=== PATIENT | female | born 1930 | race Caucasian/White ===

== ENCOUNTER → 2016-05-19 | Outpatient (CLI) | payer MEDICARE, OTHER ==
[~2016-05-19] MED LIST: AFRIN15 M1; ALENDRONATE SOD70 M1 PO; ALLEGRA ALLERG180 MG PO; ALLERGY RELIEF180 MG PO; ALPRAZOLAM0.25 MG PO; ARANESP60 MCG/1 M SUBQ; ASPIRIN EC81 M1 PO; ASPIRIN81 M2 PO; ATORVASTATIN CA10 MG PO; BACITRACIN ZIN120 GM TOP; CALCIUM +D & M1 EACH PO; CALCIUM 500 +1 EAC5 PO; CARAFATE1 GM PO; CLOPIDOGREL BIS75 MG PO; CLOPIDOGREL75 MG PO; COMBIVENT RESPIM4 GM INH; DIABETIC TUSSI PO; FERROUS GLUCON324 M1 PO; FOSAMAX70 MG PO; FUROSEMIDE40 MG PO; IMDUR PO; LASIX20 MG PO; LEVO-T50 MCG PO; LEVOTHYROXINE50 MC1 PO; LISINOPRIL2.5 MG PO; LOPRESSOR PO; METOPROLOL TAR25 MG PO; METOPROLOL TART25 MG PO; MIRTAZAPINE30 M1 PO; MULTI VITAMIN1 EACH PO; MULTI-VITAMIN1 EAC1 PO; MULTIVITAMINS1 EAC3 PO; PANTOPRAZOLE SO40 MG PO; PERCOCET 51 UDTAB 5/ PO; PERCOCET5/325 PO; PROTONIX PO; REMERON30 MG PO; SENNA8.6 M1 PO; SUCRALFATE1 G/10 ML PO; SYNTHROID PO; ZESTRIL2.5 M1 PO
--- NOTE | ~2016-05-19 | CT57 ---
[facility] A Service of [facility] & [facility] RADIOLOGY TEXT RESULTS PATIENT: CLAIRE LUCERO LOCATION: CCAT : 32 UNIT #: [id number] AGE: [address]: Carmen Marcial MD SEX: F ORDER DR: [id number] [facility] [address] [place], [place] [address] [id number] MR#: [id number] [facility] #: [id number] NAME: CLAIRE LUCERO : 1930 SEX: F STUDY DATE/TIME: 05/19/2016 9:48 UNIT: CCAT ROOM: STUDY DESCRIPTION: CT Chest Wo Cont Attending Physician: Carmen Marcial M.D. Referring Physician: Carmen Marcial M.D. Ordering Physician: Carmen Marcial M.D. Primary Care Physician: Carmen Marcial M.D. MEDICAL IMAGING REPORT This report is preliminary unless electronic signature is present EXAM CT chest without contrast DATE OF EXAMINATION 05/19/2016 at 09:48 HISTORY 86-year-old female, shortness of breath for 1 month. Abnormal chest x-ray. History of pneumonia and asthma. Previous history of stroke. Renal failure. COMPARISON PA and lateral chest radiograph 04/19/2016. No prior CT chest for comparison at this institution. PROCEDURE 5 mm noncontrast axial images through the chest. Sagittal and coronal reformatted images were obtained. This CT exam was performed with one or more of the following radiation dose reduction techniques: automatic exposure control, adjustment of mA and/or kV according to patient size, and iterative reconstruction. FINDINGS Linear band-like opacities are present within the left upper lobe, particularly in its lingular segment, as well as within the right middle lobe, favored to represent atelectasis. No dense or well-defined lung consolidations are seen. Minimal dependent atelectasis posteriorly in the lung bases. No definite pericardial effusion or pleural effusion. Mild cardiomegaly. CABG changes. No pathologic adenopathy. No pneumothorax. Right arm approach PICC extends to the cavoatrial junction. Benign calcified granulomatous changes in the mediastinum. Moderate calcific atherosclerosis in the thoracic aorta, greatest in its distal descending STS. [facility] A Service of [facility] & [facility] RADIOLOGY TEXT RESULTS PATIENT: CLAIRE LUCERO LOCATION: [facility] : 32 UNIT #: [id number] AGE: [address]: Carmen Marcial MD SEX: F ORDER DR: segment. Dense calcification in the upper abdominal aorta. Coarse calcification within the right adrenal gland, nonspecific may represent sequelae of previous infection, granulomas disease, or old ischemic insult. Left kidney appears mildly atrophic. Chronic-appearing compression deformities at T5, T7, T8, T11 and L1. No acute osseous abnormalities are identified. IMPRESSION 1. Band-like subsegmental atelectasis within the perihilar bilateral upper lobes, greatest in the lingular segment of left upper lobe, without dense consolidative change. 2. Mild cardiomegaly with CABG. 3. Chronic appearing thoracolumbar compression deformities. 4. Mild cardiomegaly. Dictated by... Pamella Jamison M.D. THIS IS AN ELECTRONICALLY VERIFIED REPORT Pamella Jamison M.D. at 05/21/2016 7:02 PM Rafaela TD: 05/19/2016 17:23 JOB #: [id number] MEDICAL IMAGING REPORT COPY
== END | disposition home or self-care (01) ==
LOC: CCAT 09:19
DX: J96.00 Acute respiratory failure, unspecified whether with hypoxia or hypercapnia (principal); J98.11 Atelectasis; I51.7 Cardiomegaly; G95.20 Unspecified cord compression; Z95.1 Presence of aortocoronary bypass graft
CPT/HCPCS: 71250

== ENCOUNTER 2016-09-05 14:53 | Inpatient (IN) | payer MEDICARE, OTHER ==
--- NOTE | ~2016-09-05 | CO ---
Unit #: [id number] #: [id number] Patient: KATHERIN LUCERO [id number] [address] [place], [place] [address] [id number] I MR#: [id number] NAME: KATHERIN LUCERO ROOM: 341 Age: 86 Sex: F Admission Date: 09/05/2016 : 1930 Attending Physician: Carmen Marcial M.D. Primary Care Physician: Carmen Marcial M.D. Consultation Date: 09/06/2016 CONSULTATION REPORT REASON FOR CONSULTATION Renal insufficiency and hyperkalemia. Thank you very much for asking me to see this patient in consultation. HISTORY OF PRESENT ILLNESS Ms. Katherin Lucero is an 86-year-old female with history of chronic kidney disease, stage 4, who has been followed in our office in the past as well as seen here in the hospital with baseline creatinine around 2+/-, who was here in the hospital in April after she had a fractured hip and surgery at [place] and then she presented here and felt to have volume overloaded, although she did have an EF at 60%. At that time, she was discharged to rehab where apparently she was there and developed some chest discomfort, ache, and soreness in nature. Apparently, she was treated with aspirin and nitroglycerin. Either prior to arrival or upon arrival, she states she has had no chest pain. Since then, she does have a history of some underlying dementia, although she is alert and oriented to me today here. She denies any nausea, vomiting, or diarrhea. Although on exam, she, by prior doctors before me in the last 24 hours, was noted to have abdominal discomfort. She did undergo a CT scan that showed diverticulosis, but no diverticulitis and really no acute pathology. She was admitted and started on some normal saline. I was asked to see the patient again due to increased BUN and creatinine of 73 and 2.7 with a potassium of 5.4 upon admission last night. PAST MEDICAL HISTORY Again she has a history of chronic kidney disease, stage 4. She has a history of atherosclerotic coronary artery disease, history of valvular heart disease with a FARAZ with an EF of 60%. She is status post coronary artery bypass graft. She has a history of a porcine aortic valve replacement. She has history of hypertension; history of TIA in the past; history of peripheral vascular disease, status post carotid endarterectomy; history of underlying dementia; history of osteoarthritis; history of chronic anemia. She is on outpatient Aranesp shots according to the list from the detention. History of hypothyroidism. She is also status post left hip surgery, status post appendectomy, status post carotid endarterectomy. ALLERGIES Include sulfa drugs and Singulair. MEDICATIONS Her medicines at the rehab/detention include Percocet. She is on alendronate 70 mg weekly; pantoprazole 40 mg a day; levothyroxine 50 mcg a Unit #: [id number] #: [id number] Patient: KATHERIN LUCERO ; alprazolam 0.25 mg b.i.d.; multivitamin a day; aspirin 81 mg a day; Plavix 75 mg a day; calcium with vitamin D daily; atorvastatin 10 mg a day; Aranesp, actually it is every other week and they reported every other day; Combivent t.i.d.; metoprolol 12.5 mg b.i.d.; Lasix 40 mg in the morning and 20 mg at noon; mirtazapine 30 mg at night. SOCIAL HISTORY Again, she lives in a detention. Previous smoker, none now. FAMILY HISTORY Noncontributory. REVIEW OF SYSTEMS As mentioned in the HPI. She denies any fevers, chills, visual problems, sinus problems, cough, hemoptysis, sore throat, difficulty swallowing. No neck pain or neck stiffness. She denies any shortness of breath. She denies any urinary symptoms starting, stopping, or burning. She denies any lower extremity swelling. No recent seizures, strokes, or skin rashes. PHYSICAL EXAMINATION GENERAL: She actually is again alert and oriented to person, place, and time. VITAL SIGNS: Her T-max is 98.9, her pulse 59 to 88, her blood pressure is 112 to 165 over 50 to 109. HEENT: She is normocephalic and atraumatic. Pupils are equal, round, and reactive to light. Extraocular muscles are intact. Hearing appears to be fairly normal. Mouth is clear. No erythema. No exudate. Pharynx appears a little dry. NECK: Supple. No adenopathy. CARDIAC: She appears to have a regular rhythm without a rub. No S3 or S4. LUNGS: Sound clear bilaterally. No wheezes, rhonchi, or rales. ABDOMEN: She has some mild diffuse tenderness. No rebound or guarding. Bowel sounds are positive. No organomegaly noted. Some mild distention. EXTREMITIES: She has no lower extremity swelling. Her pulses are intact in lower extremities. JOINTS: No joint pain or joint swelling. SKIN: No rashes. NEUROLOGIC: Actually, again she is alert and oriented. Able to move all extremities. Motor and sensory appear to be intact grossly. : Deferred. DIAGNOSTIC STUDIES LABORATORY RESULTS: Upon admission; she had a BUN of 73, creatinine 2.7, potassium 5.4, bicarb is 27, calcium is 9.2, albumin is 4.3. Her alk phos was 111, lipase was 21, total CPK was 85. Troponin less than 0.03. Cholesterol 161, TSH 2.47. Her labs this morning after holding her diuretics and a little fluid shows a BUN of 71, creatinine of 2.4, potassium of 4.2, bicarb is 31, calcium is 9.2. INR is 1. Urine sodium is 105. Hemoglobin is 12.0 with a white count of 5500, and platelets 138,000. Urinalysis shows specific gravity of 1.009, no protein, 1+ blood, although 0 to 2 rbc's. She did have 50 to 100 wbc's and 2+ bacteria with gram negatives already growing out of her urine culture. Her blood cultures are pending. ASSESSMENT AND PLAN 1. Acute on chronic kidney disease, stage 4. Certainly, her renal function was worse from her baseline and still elevated, but improving. Unit #: [id number] #: [id number] Patient: KATHERIN LUCERO She does appear to be a little volume depleted on exam and agree with holding her diuretics and mild hydration, although certainly got to be careful not to overload. We will continue her normal saline for now, probably discontinue it tomorrow if everything is back to baseline and we will follow closely. She is on Protonix and has been on that for a while due to recent data suggest that long-term PPIs can also be toxic to the kidney and we would probably like to change it over to Pepcid, but the platelets are starting to go down, so I am going to keep her on her Protonix for now, but once her platelets level also improved and no evidence of any bleeding, then probably would recommend switching her over to Pepcid long-term or H2 rajesh and stop her long-term PPI. She is also on the alendronate and certainly her creatinine clearance is less than 30 mL/minute and probably would recommend not using that long-term due to the potential side effects as well. We will follow. 2. Urinary tract infection with gram-negative rods. She is on Rocephin. Await sensitivities. 3. History of heart disease with chest pain. Cardiology has been consulted. 4. Anemia. Hemoglobin is improved. Certainly, we would hold Aranesp for now and would not restart it until hemoglobin drops below 10 and she can have that restarted at her rehab facility once her hemoglobin does drop below 10, but certainly at her level right now, she is at increased risk for vascular issues with her hemoglobin above 12 on Aranesp. She did have iron deficiency in March and was treated with IV iron. We will probably repeat iron stores while she is here. 5. History of hypertension. 6. History of mild underlying dementia. 7. Abdominal discomfort, unsure of exact etiology. CT is not too impressive. Dictated by... Cody Cardenas M.D. LYSSA/stanislav TD: 09/07/2016 04:12 JOB #: [id number] CONSULTATION REPORT Page 1 of 1 X Marta Cardenas MD X CONSULTATION REPORT
--- NOTE | ~2016-09-05 | HP ---
Unit #: [id number] #: [id number] Patient: CLAIRE LUCERO [id number] [facility]. [place], [place] [address] [id number] MR#: [id number] NAME: CLAIRE LUCERO ROOM: Age: 86 Sex: F Admission Date: 09/05/2016 : 1930 Attending Physician: Reji Cerda D.O. Primary Care Physician: Carmen Marcial M.D. HISTORY AND PHYSICAL CHIEF COMPLAINT Chest pain. HISTORY OF PRESENT ILLNESS The patient is an 86-year-old female with past medical history of coronary artery disease, valvular heart disease, hypertension, chronic kidney disease, TIA, cerebrovascular accident, who presented to the emergency department for evaluation of the above. The patient states that she was in her usual state of health until the day of admission when she developed chest pain. She states that she was trying to take a nap. She developed pain in the mid chest that she describes as "achy," it did not radiate. She denies any associated shortness of breath, diaphoresis or nausea. She states that it lasted a few minutes and resolved spontaneously. She was given sublingual nitroglycerin as well as aspirin prior to arrival. She states that her chest is currently "sore" but the severe pain has resolved. She denies any fever, no cough or cold symptoms. In the emergency department, initial pulse and blood pressure were 69 and 150/109 respectively. EKG showed normal sinus rhythm with a rate of 62 beats per minute. Initial cardiac enzymes are negative. Laboratory notable for BUN 73, creatinine 2.7, potassium 5.4. Urinalysis shows findings concerning for a urinary tract infection. She is being admitted to [facility] for evaluation and further treatment. PAST MEDICAL HISTORY 1. Admission to [facility] 04/17/2016 for ocmkh-wy-[id number] respiratory failure, likely due to CHF exacerbation. 2. CHF. Per the discharge summary from 04/20/2016, the patient had a FARAZ with an ejection fraction of 60%. 3. Coronary artery disease, status post coronary artery bypass grafting. 4. Valvular heart disease, status post porcine aortic valve replacement. 5. Hypertension. 6. History of TIA/CVA. 7. Peripheral arterial disease, status post carotid endarterectomy. 8. Dementia. 9. Chronic kidney disease, stage 4 with a baseline creatinine of 2 to 2.2. She was previously followed by Dr. Jerry Cardenas. 10. Osteoarthritis. 11. Chronic anemia. 12. Hypothyroidism. Unit #: [id number] #: [id number] Patient: CLAIRE LUCERO PAST SURGICAL HISTORY 1. Coronary artery bypass grafting. 2. Aortic valve replacement with porcine valve. 3. Surgery for left hip fracture. 4. Appendectomy. 5. Carotid endarterectomy. ALLERGIES 1. Sulfa. 2. Singulair. HOME MEDICATIONS 1. Percocet 5/325 q.i.d. 2. Alendronate 70 mg weekly. 3. Pantoprazole 40 mg daily. 4. Levothyroxine 50 mcg daily. 5. Alprazolam 0.25 mg b.i.d. 6. Multivitamin daily. 7. Aspirin 81 mg daily. 8. Plavix 75 mg daily. 9. Brandy daily. 10. Calcium plus D daily. 11. Atorvastatin 10 mg daily. 12. Aranesp 60 mcg subcu every other day. 13. Combivent t.i.d. 14. Senna b.i.d. 15. Metoprolol 12.5 mg b.i.d. 16. Lasix 40 mg daily. 17. Afrin nasal spray b.i.d. 18. Lasix 20 mg daily. 19. Mirtazapine 30 mg h.s. 20. Diabetic tussin. SOCIAL HISTORY The patient is at a care home. She is a former smoker. Her code status is a FULL CODE. FAMILY HISTORY Notable for diabetes and heart disease. REVIEW OF SYSTEMS A complete review of systems is negative except as indicated in the HPI. PHYSICAL EXAMINATION VITAL SIGNS: Temperature 98.9, pulse 69, respirations 14, blood pressure 150/109, most recently 165/59, oxygen saturation 98% on room air. GENERAL: The patient is a female who is awake and alert in no acute distress. HEENT: Head is atraumatic. Mucous membranes are moist. NECK: Supple. Trachea is midline. LUNGS: Clear to auscultation bilaterally with no increased work of breathing. HEART: Regular rate and rhythm. ABDOMEN: Soft, nontender. Bowel sounds present in all four quadrants. EXTREMITIES: Nontender with no pedal edema. NEUROLOGIC: Patient is awake and alert. She follows commands. PSYCHIATRIC: Mood and affect are normal. Patient is cooperative. SKIN OF EXAMINED AREAS: Warm and dry. Unit #: [id number] #: [id number] Patient: CLAIRE LUCERO DIAGNOSTIC STUDIES LABORATORY: Complete blood count is essentially normal. Troponin is less than 0.05. INR is 1. Comprehensive metabolic panel is notable for potassium 5.4, BUN 73, creatinine 2.7, alkaline phosphatase 111. Lipase 21. Urinalysis notable for 3+ leukocyte esterase, 1+ blood, 50-100 wbc's, 2+ bacteria. IMAGING: Chest x-ray shows no acute abnormality. CARDIOVASCULAR: EKG shows normal sinus rhythm with a rate of 62 beats per minute. ASSESSMENT The patient is an 86-year-old female with: 1. Chest pain. The patient states that chest is currently "sore." 2. History of coronary artery disease, status post coronary artery bypass grafting. 3. Dyrqm-dq-gymriou kidney disease. The patient has stage 4 chronic kidney disease with a baseline creatinine between 2 and 2.2. Today her creatinine is 2.7. She is on furosemide which may be contributing. 4. Urinary tract infection. 5. Hyperkalemia. 6. Valvular heart disease, status post aortic valve replacement with porcine valve. 7. Hypertension. 8. Hyperlipidemia. 9. History of transient ischemic attack/cerebrovascular accident. 10. Former smoker. 11. Congestive heart failure with ejection fraction as noted above. 12. Hypothyroidism. PLAN 1. Admit for observation to intermediate level. 2. N.p.o. except medications until results of CT abdomen and pelvis. 3. Follow up results of CT abdomen and pelvis previously ordered by emergency room physician. 4. Serial cardiac enzymes. 5. Fasting lipid panel. 6. Consult Dr. Friedman regarding chest pain. 7. Normal saline at 75 mL per hour. 8. Strict I's and O's. 9. Check CPK. 10. Consult Dr. Cardenas regarding invnu-mt-kvhtesr kidney disease. 11. Hold Lasix. 12. Check urine culture and sensitivity on urine in the lab. 13. Blood cultures x2. 14. Rocephin 1 gram IV daily pending results of urine culture. 15. Repeat BMP later this evening to follow up hyperkalemia. 16. Check TSH. 17. Repeat labs in the morning. 18. SCDs for DVT prophylaxis. 19. Regarding code status, the patient is a FULL CODE. Unit #: [id number] #: [id number] Patient: CLAIRE LUCERO Dictated by Danae Feliciano/james TD: 09/05/2016 20:17 JOB #: [id number] HISTORY AND PHYSICAL Page 1 of 1 X Heydi Mejia MD X HISTORY AND PHYSICAL
--- NOTE | ~2016-09-05 | EKG ---
PATIENT: CLAIRE LUCERO UNIT #: [id number] Ventricular Rate: 59 BPM Atrial Rate: 59 BPM P-R Interval: 156 ms QRS Duration: 82 ms Q-T Interval: 482 ms QTC Calculation(Bezet): 477 ms P [place]: 12 degrees Calculated R [place]: -6 degrees Calculated T [place]: 84 degrees Diagnosis Line: Sinus bradycardia with sinus arrhythmia Diagnosis Line: Consider prior inferior infarct by series Diagnosis Line: Borderline ECG Diagnosis Line: When compared with ECG of 05-SEP-2016 14:54, Diagnosis Line: No significant change was found Diagnosis Line: Confirmed by SHANNA QUINN MD ([id number]) on Diagnosis Line: 09/08/2016 6:41:17 AM INTERPRETING VAISHNAVI PENA
--- NOTE | ~2016-09-05 | CO ---
Unit #: [id number] #: [id number] Patient: CLAIRE LUCERO [id number] [facility] [address] [facility]. [place], [place] [address] [id number] I MR#: [id number] NAME: CLAIRE LUCERO ROOM: 341 Age: 86 Sex: F Admission Date: 09/05/2016 : 1930 Attending Physician: Carmen Marcial M.D. Primary Care Physician: Carmen Marcial M.D. Consultation Date: 09/06/2016 CONSULTATION REPORT REASON FOR CONSULTATION Chest pain. HISTORY OF PRESENT ILLNESS This is an 86-year-old white female, previously known to Dr. Friedman, with a past medical history of coronary artery disease, status post coronary artery bypass grafting and porcine aortic valve replacement in 2006 after myocardial infarction. The patient also has a history of PCI and stents with unknown details. She is known to have hypertension, dementia, peripheral artery disease, and history of TIA versus CVA. 2D echocardiogram was completed on 04/19/2016 which revealed an ejection fraction of 60%. She had mild mitral and tricuspid regurgitation as well as moderate pulmonic regurgitation. She was admitted to [facility] on 04/17/2016 for respiratory failure, acute diastolic congestive heart failure, and chronic kidney disease stage 4. She has been a intermediate resident over the past 5 months. She presented to the hospital yesterday with complaints of chest pain. She states that she was sitting up in a chair at the intermediate and she felt pain in the middle of her chest. It was described as an aching pain. There was no radiation. There were no associated symptoms of nausea, vomiting, diaphoresis, or shortness of breath. It lasted for several minutes and then spontaneously resolved. She has had other episodes of chest pain in the past that have been similar. There are no reports of dizziness, palpitations, or syncope. She denies PND, orthopnea, or lower extremity edema. In the emergency department, her temperature was 98.9, pulse 69, respirations 14, blood pressure 150/109, and O2 saturation 98% on 2 L nasal cannula. Initial cardiac enzymes are negative. EKG revealed sinus rhythm with early repolarization, Q waves in inferior leads. Creatinine was elevated 2.4 with a BUN of 71. Urinalysis was positive for leuks, blood, and bacteria. She was admitted for chest pain, acute kidney injury on chronic kidney disease, and probable urinary tract infection. She is currently resting comfortably and denies any symptoms. PAST MEDICAL HISTORY 1. Recent admission to [facility] on 04/17/2016 for respiratory failure, acute diastolic congestive heart failure, chronic kidney disease stage 4, iron-deficiency anemia, and recent femur fracture. Discharged to intermediate. 2. 2D echocardiogram on 04/19/2016 revealed an ejection fraction of 60%. Right ventricle and left atrium mildly dilated. Mild mitral and tricuspid regurgitation. Moderate pulmonic regurgitation. RVSP 31 mmHg. Unit #: [id number] #: [id number] Patient: CLAIRE LUCERO 3. Coronary artery disease, status post coronary artery bypass grafting and porcine aortic valve replacement after myocardial infarction in 2006. 4. Previous PCI and stents with details unavailable. 5. Hypertension. 6. TIA/CVA. 7. Peripheral artery disease with history of carotid endarterectomy. 8. Hypothyroidism. 9. intermediate resident. 10. Dementia. 11. Anxiety. 12. GERD. 13. Osteoarthritis. 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 PAST SURGICAL HISTORY 1. Coronary artery bypass grafting and aortic valve replacement in 2006. 2. Left femur fracture repair. 3. Appendectomy. 4. Carotid endarterectomy. HOME MEDICATIONS Percocet 5/325 mg one tablet p.o. q.i.d.; alendronate sodium 70 mg p.o. once weekly for osteoarthritis, takes on Sunday; pantoprazole 40 mg p.o. daily; levothyroxine 50 mcg p.o. daily; alprazolam 0.25 mg p.o. b.i.d.; multivitamin one tablet p.o. daily; aspirin 81 mg p.o. daily; Plavix 75 mg p.o. daily; Brandy 1 tablet p.o. daily; calcium with vitamin D 1 tablet p.o. daily; atorvastatin 10 mg p.o. daily; Aranesp 60 mcg subcu every other daily; Combivent 1 puff inhalation t.i.d.; senna one tablet p.o. b.i.d.; metoprolol tartrate 12.5 mg p.o. b.i.d.; furosemide 40 mg p.o. daily in the morning; Afrin 1 spray in each nostril b.i.d.; Lasix 20 mg p.o. daily at noon; mirtazapine 30 mg p.o. at bedtime; Diabetic Tussin DM 10 mL p.o. q.4 hours p.r.n. for cough. ALLERGIES Sulfa and Singulair. SOCIAL HISTORY The patient resides in a intermediate. She is a reformed smoker. There are no reports of alcohol or illicit drug use. FAMILY HISTORY Significant for heart disease. Her mother had a myocardial infarction. REVIEW OF SYSTEMS A 10-point review of systems negative except for details noted above in HPI. PHYSICAL EXAMINATION VITAL SIGNS: Temperature 97.9, pulse 58, blood pressure 127/57. CONSTITUTIONAL: This is an 86-year-old white female, in no acute distress. SKIN: Warm and dry. NECK: Supple. No jugular vein distention. No hepatojugular reflux. Normal carotid upstrokes. No carotid bruits auscultated. HEART: S1 and S2. Regular rate and rhythm. No murmurs, rubs, or gallops. LUNGS: Bilateral breath sounds have good air entry throughout all lung matute. Respirations are even and non-labored. No rales, rhonchi, or Unit #: [id number] #: [id number] Patient: CLAIRE LUCERO. ABDOMEN: Soft, nontender, and nondistended. Positive bowel sounds auscultated x4 quadrants . No ascites noted. EXTREMITIES: Bilateral lower extremities have no pretibial pitting edema. DP and PT pulses are 2+. Capillary refill is less than 2 seconds. DIAGNOSTIC STUDIES LABORATORY RESULTS: White blood cell count 5.5, hemoglobin 12, hematocrit 37.2, and platelets 138. Sodium 141, potassium 4.2, chloride 99, CO2 of 31, BUN 71, creatinine 2.4, glucose 99, total protein 6.7, albumin 3.6, AST 20, ALT 13, alkaline phos 98. Lipase 21. Troponin 0.03. INR 1.0. IMAGING STUDIES: Chest x-ray reveals mild interstitial prominence with questionable underlying fibrosis. CT of abdomen and pelvis revealed sigmoid diverticulosis with bandlike scarring in the lung base. Atherosclerosis of the abdominal aorta, but no aneurysm. Left hepatic cyst. Pancreas with mild atrophy. Left kidney with moderate atrophy. CARDIOVASCULAR STUDIES: EKG reveals sinus rhythm with early repolarization. Q waves noted in inferior leads. IMPRESSION 1. Chest pain with questionable anginal equivalent. 2. Coronary artery disease with history of coronary artery bypass grafting and porcine aortic valve replacement in 2006. 3. Left ventricular ejection fraction of 60% on 04/19/2016. 4. Chronic diastolic congestive heart failure compensated. 5. Urinary tract infection. 6. Acute kidney injury on chronic kidney disease, stage 4. 7. Chronic iron-deficiency anemia. 8. Previous left femur fracture. 9. Dementia. 10. Peripheral arterial disease with history of carotid endarterectomy. 11. Transient ischemic attack/cerebrovascular accident. 12. intermediate resident. PLAN 1. The patient presented to the hospital with complaints of chest pain. She was admitted for further observation. Cardiology was consulted. 2. Initial cardiac enzymes are negative and EKG is nonacute. 3. Ischemic testing versus medical management was discussed with the patient and she has opted for medical management. 4. She will be started on a long-acting nitrate in addition to dual antiplatelet therapy, beta rajesh, and statin. 5. She is on antibiotics and gentle IV fluids for urinary tract infection. 6. We will need to watch volume status closely due to history of congestive heart failure. Dictated by... YANI Madrigal/stanislav TD: 09/08/2016 03:53 JOB #: [id number] Unit #: [id number] #: [id number] Patient: NICCLAIRE CONSULTATION REPORT Page 1 of 1 X X CONSULTATION REPORT
--- NOTE | ~2016-09-05 | CT4 ---
[facility] A Service of [facility] RADIOLOGY TEXT RESULTS PATIENT: CLAIRE LUCERO LOCATION: A 341-01 : 32 UNIT #: [id number] AGE: [address]: Carmen Marcial MD SEX: F ORDER DR: [id number] [facility] [address] [facility]. [place], [place] [address] [id number] I MR#: [id number] Acc #: [id number] NAME: CLAIRE LUCERO : 1930 SEX: F STUDY DATE/TIME: 09/05/2016 18:38 UNIT: C3A PCU ROOM: [facility] STUDY DESCRIPTION: CT Abd and Pelv Wo Cont Attending Physician: Heydi Mejia M.D. Ordering Physician: Reji Cerda D.O. Primary Care Physician: Carmen Marcial M.D. MEDICAL IMAGING REPORT This report is preliminary unless electronic signature is present EXAMINATION CT abdomen and pelvis without contrast. DATE 09/05/2016 HISTORY 86-year-old female with diffuse abdominal pain today. Previous history of stroke, cardiac disease, hypertension, kidney disease. COMPARISON No prior CT abdomen for comparison at this institution. Correlation is made to CT chest without contrast, 06/15/2016. PROCEDURE 5 mm noncontrast axial images through the abdomen and pelvis. Enteric contrast was not administered. Sagittal and coronal reformatted images were obtained. This CT exam was performed with one or more of the following radiation dose reduction techniques: automatic exposure control, adjustment of mA and/or kV according to patient size, and iterative reconstruction. FINDINGS There is band-like scarring in the lung bases. Median sternotomy changes are noted. There is dense calcific atherosclerosis of the abdominal aorta, without aneurysm. A cyst is seen within the lateral left hepatic segment, unchanged from previous chest CT. The spleen, gallbladder, adrenals are normal. The pancreas is moderately atrophic. The left kidney is moderately atrophic. Right kidney within normal limits. No urinary tract stone or hydronephrosis is seen. The appendix is not visualized but no pericecal inflammation is evident. Advanced diverticular changes are present within the sigmoid colon without STS. [facility] A Service of [facility] RADIOLOGY TEXT RESULTS PATIENT: CLAIRE LUCERO LOCATION: C3A 341-01 : 32 UNIT #: [id number] AGE: [address]: Carmen Marcial MD SEX: F ORDER DR: evidence of acute diverticulitis. Unopacified bowel appears grossly nonthickened and noninflamed. PELVIS FINDINGS: Urinary bladder, uterus and rectum appear within normal limits. No pelvic adenopathy or free fluid is identified. Left femur open reduction internal fixation changes are present. Chronic-appearing compression deformities of T11, L1, L3, L4. IMPRESSION 1. No acute findings within the abdomen. 2. Advanced sigmoid diverticulosis without CT evidence of acute diverticulitis. 3. The appendix is not visualized but no pericecal inflammation is seen. 4. Moderate left renal atrophy and pancreatic parenchymal atrophy. 5. Median sternotomy changes. 6. Left hepatic cyst. 7. Left hip ORIF. 8. Chronic-appearing compression deformities of T11, L1, L3 and L4. 9. Not mentioned in the body of the report, there is dense calcification within the right adrenal gland likely representing old infectious or vascular insult, but in keeping with a benign finding. Dictated by... Pamella Jamison M.D. THIS IS AN ELECTRONICALLY VERIFIED REPORT Pamella Jamison M.D. at 09/06/2016 10:40 AM STANLEY/shima TD: 09/06/2016 01:18 JOB #: [id number] MEDICAL IMAGING REPORT Page 1 of 1 COPY
--- NOTE | ~2016-09-05 | CR72 ---
[facility] A Service of [facility] RADIOLOGY TEXT RESULTS PATIENT: CLAIRE LUCERO LOCATION: [facility] : 32 UNIT #: [id number] AGE: [address]: Reji Cerda DO SEX: F ORDER DR: [id number] [facility] [address] [place], [place] [address] [id number] MR#: [id number] Acc #: [id number] NAME: CLAIRE LUCERO : 1930 SEX: F STUDY DATE/TIME: 09/05/2016 15:26 UNIT: [facility] ROOM: STUDY DESCRIPTION: CR Chest Single View Portable Attending Physician: Reji Cerda D.O. Ordering Physician: Reji Cerda D.O. Primary Care Physician: Carmen Marcial M.D. MEDICAL IMAGING REPORT This report is preliminary unless electronic signature is present EXAM Portable chest. HISTORY Midchest pain, onset today. COMPARISON 04/19/16 FINDINGS Portable view of the chest demonstrates mild interstitial prominence suggesting underlying fibrosis. No acute airspace disease or consolidation. Probable small amount of right basilar atelectasis. Interval resolution of small effusions when compared to the April study. Stable cardiomegaly. Patient is post median sternotomy and apparent coronary artery bypass. Diffuse aortic atherosclerotic changes. No sizeable effusion or pneumothorax. Overall no acute findings. Dictated by... Javi Garcia M.D. THIS IS AN ELECTRONICALLY VERIFIED REPORT Javi Garcia M.D. at 09/05/2016 8:29 PM Christa TD: 09/05/2016 20:02 JOB #: [id number] MEDICAL IMAGING REPORT Page 1 of 1 COPY
--- NOTE | ~2016-09-05 | DS ---
Unit #: [id number] #: [id number] Patient: CLAIRE LUCERO [id number] [address] [address] [id number] I MR#: [id number] NAME: CLAIRE LUCERO ROOM: 341 Age: 86 Sex: F Admission Date: 09/05/2016 : 1930 Discharge Date: 09/08/2016 Attending Physician: Carmen Marcial M.D. Primary Care Physician: Carmen Marcial M.D. DISCHARGE SUMMARY DIAGNOSES ON ADMISSION 1. Acute on chronic kidney disease. 2. Chest pain. DIAGNOSES ON DISCHARGE 1. Chest pain, myocardial infarction ruled out. 2. Angina pectoris. 3. Coronary artery disease, status post coronary artery bypass grafting x4 in 2006. 4. Ischemic cardiomyopathy with ejection fraction of 30% in past but most recent echo has ejection fraction of 60%. 5. Chronic diastolic heart failure. 6. Chronic kidney disease stage 3. 7. Hypertension. 8. Dementia. 9. Degenerative joint disease. 10. Chronic anemia. 11. Hypothyroidism. 12. History of transient ischemic attack. 13. Valvular heart disease, status post aortic valve replacement (Porcine). 14. Peripheral arterial disease, status post carotid endarterectomy. 15. Acute Escherichia coli urinary tract infection. CONSULTATIONS 1. Dr. Goode in cardiac consultation. 2. Dr. Cardenas in renal consultation. DIAGNOSTIC STUDIES LABORATORY: Patient's creatinine is 1.8, which is close to his baseline. On admission, it was 2.7. Sodium 142, potassium 4.1. AST and ALT are within normal limits. Total iron was 47, TIBC 263, transferrin saturation was 18, ferritin level was 156. WBC was 6.6, hemoglobin 9.9, platelets 120,000. TSH was 2.47. Patient had a hemoglobin A1c done in March 2016 and it was 5.2. Blood cultures did not reveal any growth so far. Urine culture was positive for E. coli. HOSPITAL COURSE An 86-year-old patient was admitted to [facility] with chest pain. Details are as per admission H and P. Chest pain: Patient's chest pain was atypical. WA was ruled out. Patient was seen by cardiology who recommended medical management. Unit #: [id number] #: [id number] Patient: CLAIRE LUCERO Acute E. coli urinary tract infection: Patient was treated with antibiotics. Acute on chronic kidney disease: Patient was treated with IV fluids and was seen by Dr. Cardenas in consultation. Patient's creatinine is 1.8 today which is close to her baseline. Today patient is comfortable, is not in any acute distress. He is confused to time. PHYSICAL EXAMINATION VITAL SIGNS: Reveal temperature of 98.3, pulse 50 per minute, respiratory rate 18 per minute, blood pressure is 129/51. HEENT: Revealed no conjunctival congestion. Sclerae is nonicteric. NECK: Supple. Trachea is central. RESPIRATORY: Revealed decreased breath sounds bilaterally. There are no wheezes or crackles. HEART: Regular rate and rhythm. S1, S2. ABDOMEN: Soft, tender. Bowel sounds are present in all four quadrants. NEUROLOGIC: Patient is confused to time. He is alert and oriented to place. SKIN: Warm and dry. RECOMMENDATIONS ON DISCHARGE Condition stable. Activity as tolerated. MEDICATIONS 1. Combivent Mini neb treatment b.i.d. scheduled and q.4 hours p.r.n. 2. Remeron 30 mg p.o. nightly. 3. Xanax 0.25 mg p.o. b.i.d. p.r.n. A prescription was written. 4. Lopressor 12.5 mg p.o. b.i.d. 5. Senokot S one tablet p.o. b.i.d. 6. Lipitor 10 mg p.o. nightly. 7. Iron gluconate 325 mg p.o. daily. 8. Alendronate 70 mg once a week. 9. Multivitamin one tablet p.o. daily. 10. Enteric coated aspirin 81 mg p.o. daily. 11. Percocet 5 mg one p.o. q.6 hours p.r.n. for pain. A prescription was written. 12. Plavix 75 mg p.o. daily. 13. Protonix 40 mg p.o. daily. 14. Calcium with vitamin D one tablet p.o. daily. 15. Synthroid 50 mcg p.o. daily. 16. Afrin nasal spray one spray b.i.d. p.r.n. 17. Imdur ER 60 mg p.o. daily. 18. Omnicef 300 mg p.o. b.i.d. for four days. DISPOSITION Patient will be transferred to rehab facility. Please feel free to call us if there are any questions regarding this hospitalization. Kindly, repeat patient's BMP and CBC in four to five days. Dictated by... Unit #: [id number] #: [id number] Patient: CLAIRE LUCERO M.D. MB/ch TD: 09/08/2016 10:46 JOB #: [id number] DISCHARGE SUMMARY Page 1 of 1 X Carmen Marcial MD X DISCHARGE SUMMARY
--- NOTE | ~2016-09-05 | EKG ---
PATIENT: CLAIRE LUCERO UNIT #: [id number] Ventricular Rate: 62 BPM Atrial Rate: 62 BPM P-R Interval: 144 ms QRS Duration: 82 ms Q-T Interval: 444 ms QTC Calculation(Bezet): 450 ms P Reno: 31 degrees Calculated R Reno: 1 degrees Calculated T Reno: 70 degrees Diagnosis Line: Normal sinus rhythm Diagnosis Line: Normal ECG Diagnosis Line: Diagnosis Line: Confirmed by SHANNA QUINN MD ([id number]) on Diagnosis Line: 09/05/2016 10:47:52 PM INTERPRETING MD: BECKY
[~2016-09-05 14:53] MED LIST changes: -AFRIN15 M1; -ALENDRONATE SOD70 M1 PO; -ARANESP60 MCG/1 M SUBQ; -CALCIUM +D & M1 EACH PO; -COMBIVENT RESPIM4 GM INH; -DIABETIC TUSSI PO; -FERROUS GLUCON324 M1 PO; -FUROSEMIDE40 MG PO; -IMDUR PO; -LASIX20 MG PO; -LEVO-T50 MCG PO; -METOPROLOL TAR25 MG PO; -MIRTAZAPINE30 M1 PO; -MULTIVITAMINS1 EAC3 PO; -PERCOCET5/325 PO
[2016-09-05] MEDS ORDERED: PERCOCET5/325 PO (15:24)
[2016-09-05] MEDS ORDERED: ALENDRONATE SOD70 M1 PO (15:26)
[2016-09-05] MEDS ORDERED: PANTOPRAZOLE SO40 MG PO (15:27)
[2016-09-05] MEDS ORDERED: LEVO-T50 MCG PO (15:28)
[2016-09-05] MEDS ORDERED: ALPRAZOLAM0.25 MG PO (15:30)
[2016-09-05] MEDS ORDERED: MULTIVITAMINS1 EAC3 PO (15:31)
[2016-09-05] MEDS ORDERED: ASPIRIN EC81 M1 PO (15:32)
[2016-09-05] MEDS ORDERED: CLOPIDOGREL75 MG PO (15:33)
[2016-09-05] MEDS ORDERED: ALLEGRA ALLERG180 MG PO (15:33)
[2016-09-05] MEDS ORDERED: ATORVASTATIN CA10 MG PO (15:34)
[2016-09-05] MEDS ORDERED: CALCIUM +D & M1 EACH PO (15:34)
[2016-09-05] MEDS ORDERED: ARANESP60 MCG/1 M SUBQ (15:35)
[2016-09-05] MEDS ORDERED: COMBIVENT RESPIM4 GM INH (15:36)
[2016-09-05] MEDS ORDERED: SENNA8.6 M1 PO (15:37)
[2016-09-05] MEDS ORDERED: METOPROLOL TAR25 MG PO (15:38)
[2016-09-05] MEDS ORDERED: FUROSEMIDE40 MG PO (15:39)
[2016-09-05 15:40] LABS: BASOPHIL# 0.1 X10e3 (0-0.3); EOSINOPHIL# 0.2 X10e3 (0-0.7); EOSINOPHIL% 3.8 % (0.0-7.0); HEMATOCRIT 36.9 % (35.0-45.0); HEMOGLOBIN 12.2 gm/dL (12.0-16.0); LYMPHOCYTE# 1.2 X10e3 (1.0-3.5); LYMPHOCYTE% 20.6 % (17.0-45.0); MEAN CORPUSCULAR HEMOGLOBIN 31.5 PG (28-34); MEAN CORPUSCULAR HGB CONC 33.2 g/dL (30-36); MEAN PLATELET VOLUME 11.6 FL (6.5-11.5); MONOCYTE# 0.5 X10e3 (0-1.0); MONOCYTE% 8.7 % (3.0-12.0); NEUTROPHIL# 3.9 X10e3 (1.5-7.1); NEUTROPHIL% 65.9 % (40-75); PLATELET COUNT 169 X10e3 (140-420); RED BLOOD COUNT 3.88 X10e (3.90-5.30); RED CELL DISTRIBUTION WIDTH 15.8 % (11.0-15.5)
[2016-09-05] MEDS ORDERED: AFRIN15 M1 (15:40)
[2016-09-05 15:41] LABS: DIFF IND NO
[2016-09-05] MEDS ORDERED: MIRTAZAPINE30 M1 PO (15:41)
[2016-09-05] MEDS ORDERED: LASIX20 MG PO (15:41)
[2016-09-05] MEDS ORDERED: DIABETIC TUSSI PO (15:43)
[2016-09-05 15:53] LABS: POC - CKMB 2.4 ng/mL (0.0-7.9); POC - TROPONIN <0.05 ng/mL (<=0.05)
[2016-09-05 15:58] LABS: PROTHROMBIN TIME (PATIENT) 10.4 SECONDS (10.0-11.7)
[2016-09-05 16:05] LABS: ALBUMIN SERUM 4.3 g/dL (3.5-5.0); BILIRUBIN, DIRECT 0.3 mg/dL (0.0-0.2); BILIRUBIN,INDIRECT 0.4 mg/dL (0.0-0.9); BILIRUBIN,TOTAL 0.7 mg/dL (0.2-2.0); BUN/CREATININE RATIO 27.03; CALCIUM SERUM 9.3 mg/dL (8.4-10.2); CREATININE SERUM 2.7 mg/dL (0.6-1.4); GLOM FILT RATE Estimated 15.6 mL/min (>60); POTASSIUM 5.4 mmol/L (3.5-5.1); PROTEIN TOTAL SERUM 8.1 g/dL (6.0-8.3)
[2016-09-05 17:22] LABS: URINE SOURCE CLEAN CATCH
[2016-09-05 17:32] LABS: URINE APPEARANCE CLOUDY; URINE BILIRUBIN NEG (NEG); URINE BLOOD 1+ (NEG); URINE COLOR YELLOW; URINE GLUCOSE NEG (NEG); URINE KETONE NEG (NEG); URINE LEUKOCYTE ESTERASE 3+ (NEG); URINE NITRATE NEG (NEG); URINE PROTEIN NEG (NEG); URINE SPECIFIC GRAVITY 1.009 (1.003-1.035); URINE UROBILINOGEN 0.2 MG/DL (NEG)
[2016-09-05 17:37] LABS: CULTURE INDICATED? YES; URBCS1 AUWI 0-2 /[HPF] (0-2); URINE BACTERIA AUWI 2+ (NEGATIVE); URINE SQUAMOUS EPITHELIAL CELL OCC /[HPF]; UWBCS1 AUWI 50-100 (0-5)
[2016-09-05 17:44] LABS: U HYALINE CASTS AUWI 0-2 /[LPF]
[2016-09-05 19:15] LABS: POC - CKMB 1.6 ng/mL (0.0-7.9); POC - TROPONIN <0.05 ng/mL (<=0.05)
[2016-09-05 21:43] LABS: CREATININE,RANDOM URINE 25 mg/dL; SODIUM URINE RANDOM 105 mmol/L
[2016-09-05 22:06] LABS: BUN/CREATININE RATIO 29.61; CALCIUM SERUM 9.1 mg/dL (8.4-10.2); CREATININE SERUM 2.6 mg/dL (0.6-1.4); GLOM FILT RATE Estimated 16.3 mL/min (>60); POTASSIUM 4.6 mmol/L (3.5-5.1)
[2016-09-06 02:21] LABS: %MB 2.2 % (0.0-4.0); MB 1.8 ng/ml
[2016-09-06 05:45] LABS: HEMATOCRIT 37.2 % (35.0-45.0); MEAN CELL VOLUME 95.7 FL (83-96); MEAN CORPUSCULAR HGB CONC 32.4 g/dL (30-36); MEAN PLATELET VOLUME 10.2 FL (6.5-11.5); RED BLOOD COUNT 3.89 X10e (3.90-5.30); RED CELL DISTRIBUTION WIDTH 15.1 % (11.0-15.5); WHITE BLOOD COUNT 5.5 X10e3 (4.0-10.5)
[2016-09-06 06:40] LABS: ALBUMIN SERUM 3.6 g/dL (3.5-5.0); BILIRUBIN,TOTAL 0.8 mg/dL (0.2-2.0); BUN/CREATININE RATIO 29.58; CALCIUM SERUM 9.2 mg/dL (8.4-10.2); CREATININE SERUM 2.4 mg/dL (0.6-1.4); GLOM FILT RATE Estimated 17.9 mL/min (>60); PHOSPHOROUS 4.4 mg/dL (2.5-4.6); POTASSIUM 4.2 mmol/L (3.5-5.1); PROTEIN TOTAL SERUM 6.7 g/dL (6.0-8.3)
[2016-09-06 08:19] LABS: %MB 2.1 % (0.0-4.0); MB 1.8 ng/ml
[2016-09-07 06:19] LABS: HEMATOCRIT 31.8 % (35.0-45.0); HEMOGLOBIN 10.4 gm/dL (12.0-16.0); MEAN CELL VOLUME 95.3 FL (83-96); MEAN CORPUSCULAR HEMOGLOBIN 31.2 PG (28-34); MEAN CORPUSCULAR HGB CONC 32.7 g/dL (30-36); MEAN PLATELET VOLUME 10.5 FL (6.5-11.5); RED BLOOD COUNT 3.33 X10e (3.90-5.30); RED CELL DISTRIBUTION WIDTH 15.6 % (11.0-15.5); WHITE BLOOD COUNT 5.1 X10e3 (4.0-10.5)
[2016-09-07 07:53] LABS: BUN/CREATININE RATIO 25.41; CALCIUM SERUM 8.8 mg/dL (8.4-10.2); CREATININE SERUM 2.4 mg/dL (0.6-1.4); GLOM FILT RATE Estimated 17.9 mL/min (>60); MAGNESIUM 2.2 mg/dL (1.6-3.0); PHOSPHOROUS 4.7 mg/dL (2.5-4.6); POTASSIUM 4.2 mmol/L (3.5-5.1)
[2016-09-08 05:43] LABS: HEMATOCRIT 30.7 % (35.0-45.0); HEMOGLOBIN 9.9 gm/dL (12.0-16.0); MEAN CELL VOLUME 96.7 FL (83-96); MEAN CORPUSCULAR HEMOGLOBIN 31.3 PG (28-34); MEAN CORPUSCULAR HGB CONC 32.3 g/dL (30-36); MEAN PLATELET VOLUME 10.4 FL (6.5-11.5); RED BLOOD COUNT 3.18 X10e (3.90-5.30); RED CELL DISTRIBUTION WIDTH 15.1 % (11.0-15.5); WHITE BLOOD COUNT 6.6 X10e3 (4.0-10.5)
[2016-09-08 06:47] LABS: CALCIUM SERUM 8.6 mg/dL (8.4-10.2); CREATININE SERUM 1.8 mg/dL (0.6-1.4); GLOM FILT RATE Estimated 25.4 mL/min (>60); POTASSIUM 4.1 mmol/L (3.5-5.1)
== END 2016-09-08 16:39 | DRG 683 ==
LOC: CED 14:53 → C3A PCU 18:30 → CEDOF 18:30 → C3A PCU 18:50 → CED 18:50 → CEDOF 18:50 → C3A PCU 20:39 → CEDOF 20:39 → C3A PCU 20:39
PROVIDERS: Emergency Medicine; Family Medicine; Internal Medicine Nephrology
DX: N17.9 Acute kidney failure, unspecified (principal); I13.0 Hypertensive heart and chronic kidney disease with heart failure and stage 1 through stage 4 chronic kidney disease, or unspecified chronic kidney disease; F03.90 Unspecified dementia, unspecified severity, without behavioral disturbance, psychotic disturbance, mood disturbance, and anxiety; I50.32 Chronic diastolic (congestive) heart failure; N39.0 Urinary tract infection, site not specified; I25.119 Atherosclerotic heart disease of native coronary artery with unspecified angina pectoris; R07.9 Chest pain, unspecified; Z86.73 Personal history of transient ischemic attack (TIA), and cerebral infarction without residual deficits; Z95.1 Presence of aortocoronary bypass graft; Z95.4 Presence of other heart-valve replacement; I73.9 Peripheral vascular disease, unspecified; M19.90 Unspecified osteoarthritis, unspecified site; E03.9 Hypothyroidism, unspecified; Z79.82 Long term (current) use of aspirin; E87.5 Hyperkalemia; N18.4 Chronic kidney disease, stage 4 (severe); D50.9 Iron deficiency anemia, unspecified; B96.20 Unspecified Escherichia coli [E. coli] as the cause of diseases classified elsewhere; I25.5 Ischemic cardiomyopathy
CPT/HCPCS: 36415; 71010; 74176; 80048; 80053; 80061; 80076; 81003; 82550; 82553; 82570; 82728; 83540; 83550; 83690; 83735; 84100; 84300; 84443; 84484; 85025; 85027; 85610; 85730; 87040; 87086; 87088; 87186; 93005; 94640; 94760; 99285; J0696; J2916

== ENCOUNTER 2016-09-26 06:55 | Inpatient (IN) | payer MEDICARE, OTHER ==
[~2016-09-26] VITALS: Ht 157.5 cm; Wt 62.8 kg
--- NOTE | ~2016-09-26 | DS ---
Unit #: [id number] #: [id number] Patient: CLAIRE LUCERO [id number] [address] [address] [id number] I MR#: [id number] NAME: CLAIRE LUCERO ROOM: 556 Age: 86 Sex: F Admission Date: 09/26/2016 : 1930 Discharge Date: 10/02/2016 Attending Physician: Carmen Marcial M.D. Primary Care Physician: Carmen Marcial M.D. DISCHARGE SUMMARY DIAGNOSES ON ADMISSION 1. Acute pulmonary edema. 2. Acute coronary syndrome. DIAGNOSES ON DISCHARGE 1. Acute diastolic heart failure, improved. 2. Acute on chronic respiratory failure, improved. 3. Chronic kidney disease, stage 4. 4. Hypertension. 5. Coronary artery disease, status post coronary artery bypass graft x4 in 2006. 6. History of ischemic cardiomyopathy. 7. Dementia. 8. Degenerative joint disease. 9. Chronic anemia. 10. Hypothyroidism. 11. Valvular heart disease, status post aortic valve replacement, porcine. 12. Peripheral arterial disease, status post carotid endarterectomy. CONSULTATION 1. Dr. Bautista - Pulmonary consultation. 2. Dr. Friedman - Cardiology consultation. 3. Dr. Roel Cardenas - Renal consultation. LABS AND PROCEDURES DONE The patient's creatinine is 2.1, sodium is 142, potassium is 4.6. WBC 7.5, hemoglobin 10.3, platelet count is 116. Chest x-ray revealed slight improvement in diffuse interstitial edema. HOSPITAL COURSE This is an 86-year-old female who presented to [facility] with shortness of breath. Details are as per admission H and P. Acute diastolic heart failure: The patient was seen by cardiology in consultation. She had acute pulmonary edema but patient responded well to diuretics. Coronary artery disease, status post coronary artery bypass graft: The patient had acute coronary syndrome. The patient's overall condition - cardiology recommended medical treatment. Chronic kidney disease, stage 4: The patient's creatinine was stable. Unit #: [id number] #: [id number] Patient: CLAIRE LUCERO Acute respiratory failure: The patient has a history of chronic respiratory failure. With diuresis, her respiratory failure improved and she is on 2 L of O2. The patient's goals of care and condition was discussed in detail with patient's power of county attorney and her niece, Julissa, and also with patient. She wanted to be kept alive and was treated aggressively. I recommended DNR patient and the niece, Julissa, promised to think about that. The patient is currently Full Code. RECOMMENDATIONS ON DISCHARGE 1. Condition is stable. 2. Activity as tolerated. 3. Medications are: a) Combivent mini neb treatment three times a day. b) Remeron 30 mg q. h.s. c) Brandy 180 mg p.o. daily p.r.n. d) Xanax 0.25 mg p.o. b.i.d. e) Lopressor 25 mg p.o. b.i.d. f) Senokot-S, two tablets p.o. b.i.d. g) Bumex 1 mg p.o. b.i.d. h) Lipitor 10 mg p.o. q. h.s. i) Iron gluconate 325 mg p.o. every other day. j) Fosamax 70 mg q. weekly. k) Multivitamin, one tablet p.o. daily. l) Enteric coated aspirin 81 mg p.o. daily. m) Percocet 5 mg p.o. q.4 hours p.r.n. for pain. n) Plavix 75 mg p.o. daily. o) Protonix 40 mg p.o. daily. p) Calcium with vitamin D, one tablet p.o. daily. q) Synthroid 50 mcg p.o. daily. r) Imdur 30 mg p.o. daily. DISPOSITION [facility] Scripts for Xanax and Percocet were written. The plan was discussed in detail with patient and her POA, Julissa, and they showed complete understanding to the fact that patient's overall prognosis is poor. Total time spent on this discharge was 35 minutes. Dictated byDanae Dunlap TD: 10/02/2016 12:27 JOB #: [id number] Unit #: [id number] #: [id number] Patient: CLAIRE LUCERO DISCHARGE SUMMARY Page 1 of 1 X Carmen Marcial MD DISCHARGE SUMMARY
--- NOTE | ~2016-09-26 | HP ---
Unit #: [id number] #: [id number] Patient: CLAIRE LUCERO [id number] [facility] [address] [facility]. [place], [place] [address] [id number] I MR#: [id number] NAME: CLAIRE LUCERO ROOM: CIC3 Age: 86 Sex: F Admission Date: 09/26/2016 : 1930 Attending Physician: Rito Platt M.D. Primary Care Physician: Carmen Marcial M.D. HISTORY AND PHYSICAL REASON FOR ADMISSION Dyspnea, multifactorial in origin, edema versus healthcare-acquired pneumonia. HISTORY OF PRESENT ILLNESS Patient is a very pleasant 86-year-old female who was recently discharged from [facility] on September 08, 2016, secondary to chest pain. At that point in time, she was discharged on no IV diuretics. For the past several days while at [facility] where she was present for rehab, patient began having increased respiratory distress. Anxiety medications were attempted at outside facility, did not show any improvement. Subsequently, EMS services were called and patient was subsequently brought to [facility] for further evaluation. Initial findings were consistent with acute hypoxic respiratory failure and I am currently seeing her in the ICU. She has already been evaluated by cardiology, pulmonary, as well as, nephrology services. Pulmonary services have recommended ongoing IV diuresis, less likely felt to be infectious in nature and plans are already being placed for cardiac catheterization in the next several days. PAST MEDICAL HISTORY 1. Recent hospital admissions, August 2016, secondary to similar circumstance as well as heart failure exacerbation. August 2016 hospital admission secondary to chest pain. 2. Prior history of diastolic dysfunction, I believe ejection fraction 60%. FARAZ in April 2016. 3. Coronary artery disease with prior history of CABG. 4. Valvular heart disease, status post Porcine aortic valve replacement. 5. Hypertension. 6. Prior history of TIA/CVA. 7. Prior history of peripheral arterial disease. 8. History of carotid endarterectomy. 9. 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 10. Chronic kidney disease stage 4, baseline creatinine 2 to 2.2. 11. Osteoarthritis. 12. Anemia. 13. Hypothyroidism. 14. Surgery for left hip fracture. 15. Appendectomy. Unit #: [id number] #: [id number] Patient: CLAIRE LUCERO ALLERGIES Sulfa, Singulair. HOME MEDICATIONS/MEDICATIONS AT THE CARE HOME 1. Percocet. 2. Fosamax. 3. Pantoprazole. 4. Levothyroxine. 5. Xanax. 6. Multivitamins. 7. Aspirin. 8. Plavix. 9. Brandy. 10. Calcium. 11. Lipitor. 12. Combivent. 13. Senna. 14. Metoprolol. 15. Remeron. 16. Ferrous gluconate. 17. Imdur. REVIEW OF SYSTEMS Please see HPI. A 12-point otherwise negative except for those positive and noted in the HPI. SOCIAL HISTORY [facility]. Former smoker. No current tobacco use. No alcohol use. CODE STATUS She is a full code. FAMILY HISTORY Positive diabetes, heart disease. PHYSICAL EXAMINATION VITAL SIGNS: Temperature on admission 97.9, pulse 69, respiratory rate 18, blood pressure 153/64. GENERAL APPEARANCE: The patient is a frail 86-year-old female lying comfortably in no acute distress. HEENT: Head: Atraumatic, normocephalic. Ears: Tympanic membranes did not reveal erythema, injection. NECK: Supple. Accessory muscle use noted. CARDIOVASCULAR: S1, S2. Tachycardic without murmur. RESPIRATORY: Diminished to anterior auscultation bilaterally with poor air exchange. GASTROINTESTINAL/ABDOMEN: Nontender, nondistended. EXTREMITIES: Lower extremities: No evidence of any lower extremity edema. DIAGNOSTIC STUDIES LABORATORY: Initial laboratory studies show an ABG of pH 7.296, pCO2 of 52, pO2 of 91. BNP 679. Initial cardiac enzymes negative. Initial urinalysis: One plus protein, one plus leukocyte esterase. Culture not indicated. Lactic acid 1. CBC shows a hemoglobin of 11.7, white count 7. INITIAL IMPRESSION Unit #: [id number] #: [id number] Patient: CLAIRE LUCERO 1. Acute hypoxic respiratory failure. 2. Dyspnea, multifactorial in origin. 3. Acute on chronic kidney disease, stage 4. 4. Acute on chronic diastolic dysfunction. 5. Coronary artery disease with prior history of coronary artery bypass grafting. 6. Acute pulmonary edema. 7. Prior history of valve replacement, Porcine. 8. Hypertension history. 9. Chronic deconditioning. PLAN 1. Admission intensive care unit. 2. Cardiac consult. 3. Pulmonary consult. 4. Renal consult. 5. Plans as per consultants. 6. Strict ins and outs. 7. Symptom management. 8. IV diuresis. 9. Discontinue vancomycin and Zosyn that were already administered in the emergency room. 10. As per pulmonary recommendations who have already seen the patient, they feel as though it is less likely to be infectious in nature, more likely to be acute fluid overload in nature. 11. Patient is full code. 12. We will continue to follow. Dictated by Danae Everett/stef TD: 09/26/2016 14:19 JOB #: [id number] HISTORY AND PHYSICAL Page 1 of 1 X Rito Platt MD X HISTORY AND PHYSICAL
--- NOTE | ~2016-09-26 | CO ---
Unit #: [id number] #: [id number] Patient: CLAIRE LUCERO [id number] [place] [id number] [facility]. [place], [place] [address] [id number] I MR#: [id number] NAME: CLAIRE LUCERO ROOM: CIC3 Age: 86 Sex: F Admission Date: 09/26/2016 : 1930 Attending Physician: Nette Garrido M.D. Primary Care Physician: Carmen Marcial M.D. Consultation Date: 09/26/2016 CONSULTATION REPORT HISTORY OF PRESENT ILLNESS Ms. Lucero is an 86-year-old white female with a history of aortic valve replacement, ischemic cardiomyopathy, hypertension, chronic kidney disease stage 3, who presented after awakening short of breath. Chest x-ray showed bilateral infiltrates consistent with CHF. There was slightly more infiltrate in the right base and radiologist read as possible pneumonia. We were asked to see. Initially, she was placed on BiPAP. Arterial blood gases, pH 7.20, pCO2 62, PO2 of 219 on 100% BiPAP. Her other lab work was significant for creatinine of 2.1, which was stable from 1.8 on 09/08/2016. Her BNP was 679. Initial cardiac enzymes are negative. White blood cell count was 7000, hematocrit was 36.6. Currently do not see an EKG in the chart. In the emergency room, she received nitroglycerin paste, Zosyn, vancomycin, Solu-Medrol, and Lasix 20 mg IV. PAST MEDICAL HISTORY Significant for coronary artery disease, status post coronary artery bypass grafting and porcine aortic valve replacement in 2006 after myocardial infarction. She has had history of PCIs and stent placements. She had an ejection fraction of 30% at one point, but I think most recently an echocardiogram revealed an ejection fraction of 60% in 04/2016. There is a history of diastolic congestive heart failure, hypertension, TIA/CVA, peripheral artery disease status post carotid endarterectomy, hypothyroidism, dementia, anxiety, GERD, osteoarthritis. She is a reformed smoker x30 years. PAST MEDICAL HISTORY Coronary artery bypass grafting and aortic valve replacement, porcine; left femur fracture repair; appendectomy; carotid endarterectomy. HOME MEDICATIONS Listed include Percocet, alendronate, Protonix, levothyroxine, Xanax, multivitamins, aspirin, Plavix, allergy pills, calcium with vitamin D, atorvastatin, Combivent Respimat, senna, metoprolol, Remeron, ferrous sulfate, Imdur ER. ALLERGIES Sulfa and Singulair. SOCIAL HISTORY [facility] Reformed smoker x30 years. No alcohol or illicit drugs. FAMILY HISTORY Significant for heart disease. Unit #: [id number] #: [id number] Patient: ALEKSANDARCLAIRE PHILLIP REVIEW OF SYSTEMS Ten point system, otherwise negative. Difficult to discern due to the patient on BiPAP. PHYSICAL EXAMINATION GENERAL: White female, in no distress, able to communicate somewhat through BiPAP, not using accessory muscles. VITAL SIGNS: Blood pressure is 153/64, pulse 69, respiratory rate 18, afebrile. HEENT: Normocephalic and atraumatic. Pupils are equal, round, and reactive. Sclerae nonicteric. Nasal passages and oral cavity not examined due to full face BiPAP. LUNGS: Reveal some crackles in the bases. CARDIAC: Regular rate and rhythm. Could not appreciate murmur, rub, or gallop. ABDOMEN: Nontender. Bowel sounds present. EXTREMITIES: Without clubbing, cyanosis, or edema. NEURO: Awake, appears oriented, follows commands. Moves all extremities. SKIN: Warm and dry. Psychiatric: Affect calm. DIAGNOSTIC STUDIES LABORATORY RESULTS: Reviewed. IMPRESSION 1. Acute pulmonary edema, doubt pneumonia. 2. Coronary artery disease status post coronary artery bypass grafting and porcine aortic valve replacement. 3. Chronic diastolic congestive heart failure. 4. Chronic kidney disease, stage 3. 5. Hypertension. 6. Acute hypoxemic hypercarbic respiratory failure. PLAN We will discontinue antibiotics as I feel she does not have pneumonia. I recommend diuresis, preload after reduction, rule out HI per Dr. Friedman. We will recheck arterial blood gases on BiPAP and see if she may be removed from bypass and placed on supplemental oxygen. Further recommendations pending this. Dictated by... Wenceslao Bautista M.D. SCOTT/stanislav TD: 09/27/2016 02:04 JOB #: [id number] Unit #: [id number] #: [id number] Patient: CLAIRE LUCERO CONSULTATION REPORT Page 1 of 1 X Wenceslao Bautista MD CONSULTATION REPORT
--- NOTE | ~2016-09-26 | CR72 ---
[facility] A Service of [facility] RADIOLOGY TEXT RESULTS PATIENT: CLAIRE LUCERO LOCATION: [place] [address]-17 : 32 UNIT #: [id number] AGE: [address]: Nette Garrido MD SEX: F ORDER DR: [id number] [facility] [address] [facility]. [place], [place] [address] [id number] I MR#: [id number] Acc #: [id number] NAME: CLAIRE LUCERO : 1930 SEX: F STUDY DATE/TIME: 09/28/2016 5:36 UNIT: [facility] ROOM: [facility] STUDY DESCRIPTION: CR Chest Single View Portable Attending Physician: Rito Platt M.D. Ordering Physician: Wenceslao Bautista M.D. Primary Care Physician: Carmen Marcial M.D. MEDICAL IMAGING REPORT This report is preliminary unless electronic signature is present EXAM Frontal chest 09/28/2016 INDICATION 86-year-old female with a history of shortness of air, weakness. Hypertension. Symptoms for 2 days. Renal failure and stroke. TECHNIQUE Frontal chest was performed and compared with 09/27/2016. FINDINGS The heart is enlarged but stable status post median sternotomy. There is mild vascular congestion and interstitial edema. Small effusions with bibasilar atelectasis or infiltrates persist. No pneumothorax. There is old healed granulomatous disease. IMPRESSION Cardiomegaly with vascular congestion, interstitial edema and small effusions. The appearance is slightly worse than on the prior study. No pneumothorax. Dictated by... Irvin Gloria M.D. THIS IS AN ELECTRONICALLY VERIFIED REPORT Irvin Gloria M.D. at 09/28/2016 4:00 PM NALINI/patience TD: 09/28/2016 06:44 JOB #: [id number] MEDICAL IMAGING REPORT [facility] A Service [facility] RADIOLOGY TEXT RESULTS PATIENT: CLAIRE LUCERO LOCATION: CICCU3 CICCU3-17 : 32 UNIT #: [id number] AGE: [address]: Nette Garrdio MD SEX: F ORDER DR: Page 1 of 1 COPY
--- NOTE | ~2016-09-26 | EKG ---
PATIENT: CLAIRE LUCERO UNIT #: [id number] Ventricular Rate: 70 BPM Atrial Rate: 70 BPM P-R Interval: 146 ms QRS Duration: 86 ms Q-T Interval: 428 ms QTC Calculation(Bezet): 462 ms P Frazer: 6 degrees Calculated R Frazer: 1 degrees Calculated T Frazer: 51 degrees Diagnosis Line: Normal sinus rhythm Diagnosis Line: Minimal voltage criteria for LVH, may be normal Diagnosis Line: variant Diagnosis Line: Inferior infarct (cited on or before 26-SEP-2016) Diagnosis Line: When compared with ECG of 07-SEP-2016 08:21, Diagnosis Line: No significant change was found Diagnosis Line: Confirmed by VESNA MARSHALL MD ([id number]) on Diagnosis Line: 09/26/2016 4:24:51 PM INTERPRETING MD: ANANTH
--- NOTE | ~2016-09-26 | CR63 ---
[facility] A Service of [facility] RADIOLOGY TEXT RESULTS PATIENT: CLAIRE LUCERO LOCATION: [place] [address]- : 32 UNIT #: [id number] AGE: [address]: Nette Garrido MD SEX: F ORDER DR: [id number] [facility] [address] [facility] [facility]. [place], [place] [address] [id number] I MR#: [id number] Acc #: [id number] NAME: CLAIRE LUCERO : 1930 SEX: F STUDY DATE/TIME: 09/30/2016 9:21 UNIT: [facility] ROOM: [facility] STUDY DESCRIPTION: CR Chest 2 View Attending Physician: Nette Garrido M.D. Ordering Physician: Wenceslao Bautista M.D. Primary Care Physician: Carmen Marcial M.D. MEDICAL IMAGING REPORT This report is preliminary unless electronic signature is present EXAM Two-view chest INDICATIONS Congestive heart failure. Shortness of air. Weakness. Cough. FINDINGS PA and lateral views of the chest compared to 09/28/2016. The heart and mediastinal contours are unchanged. Diffuse interstitial edema is slightly improving. There is bibasilar atelectasis and/or small effusions. No pneumothorax. IMPRESSION Slight improvement in interstitial edema. Dictated by... Kenroy Figueroa M.D. THIS IS AN ELECTRONICALLY VERIFIED REPORT Kenroy Figueroa M.D. at 09/30/2016 2:16 PM RPCeline/deepthi TD: 09/30/2016 10:45 JOB #: [id number] MEDICAL IMAGING REPORT Page 1 of 1 COPY
--- NOTE | ~2016-09-26 | CR72 ---
[facility] A Service of [facility] RADIOLOGY TEXT RESULTS PATIENT: CLAIRE LUCERO LOCATION: [address] : 32 UNIT #: [id number] AGE: [address]: Rito Platt MD SEX: F ORDER DR: [id number] [facility] [address] [place], [place] [address] [id number] I MR#: [id number] Acc #: [id number] NAME: CLAIRE LUCERO : 1930 SEX: F STUDY DATE/TIME: 09/27/2016 5:50 UNIT: [facility] ROOM: [facility] STUDY DESCRIPTION: CR Chest Single View Portable Attending Physician: Rito Platt M.D. Ordering Physician: Noe Luciano M.D. Primary Care Physician: Carmen Marcial M.D. MEDICAL IMAGING REPORT This report is preliminary unless electronic signature is present EXAM Single view chest INDICATIONS Respiratory distress. Pleural effusion. FINDINGS Single portable AP view of the chest compared to 09/26/2016. FINDINGS The heart is enlarged. Patient has postsurgical change of CABG. There is interstitial edema in both lungs, similar to the prior study. There is increasing bibasilar airspace opacities and/or small effusion. No pneumothorax. IMPRESSION 1. Increasing basilar airspace opacities and/or small effusions. 2. Interstitial opacities are fairly similar to the prior study. Dictated by... Kenroy Figueroa M.D. THIS IS AN ELECTRONICALLY VERIFIED REPORT Kenroy Figueroa M.D. at 09/27/2016 8:02 AM ROSEANN/haylie TD: 09/27/2016 07:16 JOB #: [id number] MEDICAL IMAGING REPORT Page 1 of 1 COPY
--- NOTE | ~2016-09-26 | CO ---
Unit #: [id number] #: [id number] Patient: CLAIRE LUCERO [id number] [address] [place], [place] [address] [id number] I MR#: [id number] NAME: CLAIRE LUCERO ROOM: CIC3 Age: 86 Sex: F Admission Date: 09/26/2016 : 1930 Attending Physician: Nette Garrido M.D. Primary Care Physician: Carmen Marcial M.D. Consultation Date: 09/26/2016 CONSULTATION REPORT REASON FOR CONSULTATION CKD, stage 4. HISTORY OF PRESENT ILLNESS Ms. Lucero is an elderly female, who is a [facility] resident who was readmitted again overnight with complaints of chest pain. The patient was actually just here and was discharged on 09/08/2016 and she saw my partner, Dr. Cardenas, during that admission. I refer you to his 09/06/2016 consult note. During that admission, it looks like she had very stable chronic kidney disease, stage 4 and was discharged with a creatinine of around 2. Again, she was readmitted with chest pain, and is currently on BiPAP. She denies any chest pain to me at this time. Her breathing appears stable on BiPAP. She has a great urine output with clear urine in the Harding catheter bag this morning. She denies any rashes or itching. No flank pain. No fevers or chills. PAST MEDICAL HISTORY Significant for CKD stage 4, coronary artery disease, valvular heart disease, hypertension, TIA, peripheral vascular disease, some underlying dementia, osteoarthritis, chronic anemia, hypothyroidism, diastolic congestive heart failure, recent urinary tract infection with Escherichia coli. PAST SURGICAL HISTORY She has had a CABG; aortic valve replacement, porcine; carotid endarterectomy; hip surgery; appendectomy. MEDICATIONS Her discharge medications from 09/08/2016 are as follows; Combivent inhaler, Remeron 30 mg nightly, Xanax b.i.d. p.r.n., Lopressor 12.5 mg b.i.d., Senokot-S b.i.d., Lipitor 10 mg daily, iron tablet daily, Fosamax 70 mg weekly, multivitamin daily, baby aspirin daily, Percocet p.r.n., Plavix 75 mg a day, Protonix 40 mg a day, calcium plus vitamin D daily, Synthroid 50 mcg a day, Afrin nasal spray, Imdur 60 mg a day, and Omnicef 300 mg b.i.d. ALLERGIES She has quoted allergies to sulfa drugs and Singulair. FAMILY HISTORY Noncontributory to the current issues. SOCIAL HISTORY The patient lives in a [facility]. She is a former smoker. No history Unit #: [id number] #: [id number] Patient: CLAIRE LUCERO of alcohol or tobacco abuse or drug use that I am aware of. REVIEW OF SYSTEMS A complete 12-point review of systems was attempted with the above findings. Further review of systems was somewhat limited due to her being on BiPAP. She does not appear to be in any pain or distress. Denies any headaches or dizziness. No nosebleed, sore throat, or earache. No palpitations. No cough or hemoptysis. No nausea, vomiting, or diarrhea. No bright red blood per rectum or melena. No hematuria. Some swelling. No rashes or itching. No night sweats or hot flashes. No intolerance to heat or cold. No bleeding issues. Unless otherwise indicated, the review of systems was negative. PHYSICAL EXAMINATION VITAL SIGNS: The patient is afebrile, pulse 69, respiratory rate 18, and blood pressure 153/64. GENERAL: This is an 86-year-old female, on BiPAP, is talking, answers questions appropriately, and is in no acute distress. HEENT: Head is atraumatic and normocephalic. Eyes show pale conjunctiva with no scleral icterus. No nasal drainage or nosebleed. Oropharynx appears moist. No thrush. She is wearing BiPAP. NECK: Shows no rigidity. HEART: Regular rate and rhythm with no significant murmur or rub appreciated. LUNGS: Have coarse breath sounds with a BiPAP machine. Breathing is nonlabored at rest. ABDOMEN: Soft, nontender, and nondistended. Bowel sounds are present. EXTREMITIES: No lower extremity clubbing or cyanosis. She does have 1+ lower extremity edema below the knees bilaterally. SKIN: Dry with no rashes. GENITOURINARY: Harding catheter is in place with nonbloody urine. MUSCULOSKELETAL: No CVA tenderness to palpation. NEUROLOGICAL: Cranial nerves are grossly intact. She does appear to have some generalized weakness with no focal deficits. LYMPHATIC: There is no neck or cervical lymphadenopathy. PSYCHIATRIC: Mood and affect appear normal. DIAGNOSTIC STUDIES LABORATORY RESULTS: BNP this morning was 679. Troponin less than 0.05. INR 2.2. Urinalysis did show 1+ protein, no bacteria or significant blood, nitrite negative. Chemistry this morning, potassium 4.8, bicarb 25, glucose 141, creatinine 2.1 which is baseline. Lactic acid was 1. CBC; hemoglobin 11.7, otherwise unremarkable. Initial ABG did show some CO2 retention with pH of 7.203, pCO2 of 62, PO2 of 219, and a bicarb of 24. Again, her most recent creatinine here from 09/08/2016 was 1.8, but it looks like she normally runs in the low 2 range overall. ASSESSMENT AND PLAN 1. Chronic kidney disease, stage 4. Overall, the patient's kidney function does appear to be stable. We have been asked to see for cardiac cath prep in the morning. She is at increased risk for catheterization and contrast dye injury. We will start prophylaxis with Mucomyst and plan for IV fluids later tonight. I do feel it is okay to proceed with the catheterization in the morning with the understanding that there is a risk for worsening kidney function and acute kidney injury with dye. Certainly, we would avoid ventriculogram. 2. Anemia of chronic disease. The patient's hemoglobin is reasonable on her iron supplement. No Procrit is needed. Unit #: [id number] #: [id number] Patient: CLAIRE LUCERO 3. Hypertension. The patient's home metoprolol has been restarted and we can titrate her medications as needed. 4. Congestive heart failure, diastolic in nature. Dr. Friedman has been using diuresis which we will continue today, but discontinue overnight in order to perform a heart catheterization tomorrow. 5. CO2 retention, now on BiPAP, followed by Dr. Bautista. I would like to thank Dr. Friedman for this consult and the opportunity to participate in evaluation and care of Ms. Lucero. Dictated by... Lalo Redd Jr., M.D. ESTEBAN/stanislav TD: 09/27/2016 03:03 JOB #: [id number] CONSULTATION REPORT Page 1 of 1 X Lalo Redd MD CONSULTATION REPORT
--- NOTE | ~2016-09-26 | CR72 ---
[facility] A Service of [facility] RADIOLOGY TEXT RESULTS PATIENT: CLAIRE LUCERO LOCATION: [address] : 32 UNIT #: [id number] AGE: [address]: Rito Platt MD SEX: F ORDER DR: [id number] [facility] [address] [place], [place] [address] [id number] I MR#: [id number] Acc #: [id number] NAME: CLAIRE LUCERO : 1930 SEX: F STUDY DATE/TIME: 09/26/2016 7:16 UNIT: [facility] ROOM: [facility] STUDY DESCRIPTION: CR Chest Single View Portable Attending Physician: Rito Platt M.D. Ordering Physician: Reji Cerda D.O. Primary Care Physician: Carmen Marcial M.D. MEDICAL IMAGING REPORT This report is preliminary unless electronic signature is present EXAM Portable chest HISTORY Shortness of breath and weakness onset today. TECHNIQUE Single view of the chest was obtained and compared with 09/05/2016 FINDINGS The heart and mediastinum are stable. In the lungs pulmonary vascular markings are prominent and diffuse interstitial infiltrates are seen bilaterally more prominent in [id number] lung matute. Findings suggest either congestive heart failure or fluid overload. An element of infectious or inflammatory lung disease cannot be excluded. This is particularly evident at the left lung base where there is relatively more consolidation. The left costophrenic angle also appears to be slightly blunted compared to the previous examination. This could reflect a small effusion. IMPRESSION 1. Generalized increase in pulmonary vascularity and interstitial markings since the previous examination suggesting fluid overload or mild congestive heart failure. Additionally, there is relatively more consolidation at the left lung base. This is suspicious for either pneumonia or aspiration pneumonitis at the left base. Dictated by... Corona Jones M.D. THIS IS AN ELECTRONICALLY VERIFIED REPORT Corona Jones M.D. at 09/26/2016 4:54 PM RLF/rnr [facility] A Service of [facility] RADIOLOGY TEXT RESULTS PATIENT: CLAIER LUCERO LOCATION: CIC3 CICCU3-17 : 32 UNIT #: [id number] AGE: [address]: Rito Platt MD SEX: F ORDER DR: TD: 09/26/2016 14:38 JOB #: [id number] MEDICAL IMAGING REPORT Page 1 of 1 COPY
[~2016-09-26 06:55] MED LIST changes: +AFRIN15 M1; +ALENDRONATE SOD70 M1 PO; +ARANESP60 MCG/1 M SUBQ; +CALCIUM +D & M1 EACH PO; +COMBIVENT RESPIM4 GM INH; +DIABETIC TUSSI PO; +FUROSEMIDE40 MG PO; +LASIX20 MG PO; +LEVO-T50 MCG PO; +METOPROLOL TAR25 MG PO; +MIRTAZAPINE30 M1 PO; +MULTIVITAMINS1 EAC3 PO; +PERCOCET5/325 PO
[2016-09-26 07:17] LABS: ARTERIAL BLD GAS O2 SATURATION 98.3 % (90.0-100.0); ARTERIAL BLOOD GAS ALLEN TEST NORMAL; ARTERIAL BLOOD GAS ART SITE LEFT RADIAL; ARTERIAL BLOOD GAS DELIVERY BIPAP; ARTERIAL BLOOD GAS HCO3 24.5 mmol/L; ARTERIAL BLOOD GAS MET HB 0.6 %sat (0.0-2.0); ARTERIAL BLOOD GAS PCO2 62.3 mmHg (35.0-45.0); ARTERIAL BLOOD GAS pH 7.203 (7.350-7.450); ARTERIAL DRAW? YES
[2016-09-26 07:42] LABS: POC - CKMB 2.7 ng/mL (0.0-7.9); POC - TROPONIN <0.05 ng/mL (<=0.05)
[2016-09-26 07:49] LABS: BASOPHIL# 0.1 X10e3 (0-0.3); BASOPHIL% 0.9 % (0-2.5); EOSINOPHIL# 0.3 X10e3 (0-0.7); EOSINOPHIL% 4.3 % (0.0-7.0); HEMATOCRIT 36.6 % (35.0-45.0); HEMOGLOBIN 11.7 gm/dL (12.0-16.0); LYMPHOCYTE# 1.8 X10e3 (1.0-3.5); MEAN CELL VOLUME 98.6 FL (83-96); MEAN CORPUSCULAR HEMOGLOBIN 31.5 PG (28-34); MEAN CORPUSCULAR HGB CONC 31.9 g/dL (30-36); MEAN PLATELET VOLUME 10.7 FL (6.5-11.5); MONOCYTE# 0.4 X10e3 (0-1.0); NEUTROPHIL# 4.5 X10e3 (1.5-7.1); NEUTROPHIL% 63.8 % (40-75); PLATELET COUNT 151 X10e3 (140-420); RED BLOOD COUNT 3.71 X10e (3.90-5.30); RED CELL DISTRIBUTION WIDTH 15.9 % (11.0-15.5)
[2016-09-26 07:51] LABS: DIFF IND NO
[2016-09-26 08:31] LABS: ALBUMIN SERUM 3.8 g/dL (3.5-5.0); BILIRUBIN, DIRECT 0.1 mg/dL (0.0-0.2); BILIRUBIN,INDIRECT 0.4 mg/dL (0.0-0.9); BILIRUBIN,TOTAL 0.5 mg/dL (0.2-2.0); BUN/CREATININE RATIO 13.8; CALCIUM SERUM 8.8 mg/dL (8.4-10.2); CREATININE SERUM 2.1 mg/dL (0.6-1.4); GLOM FILT RATE Estimated 21.1 mL/min (>60); POTASSIUM 4.8 mmol/L (3.5-5.1)
[2016-09-26 08:33] LABS: URINE APPEARANCE CLOUDY; URINE BILIRUBIN NEG (NEG); URINE BLOOD NEG (NEG); URINE COLOR YELLOW; URINE GLUCOSE NEG (NEG); URINE KETONE NEG (NEG); URINE LEUKOCYTE ESTERASE 1+ (NEG); URINE NITRATE NEG (NEG); URINE PROTEIN 1+ (NEG); URINE SPECIFIC GRAVITY 1.016 (1.003-1.035); URINE UROBILINOGEN 0.2 MG/DL (NEG)
[2016-09-26 08:35] LABS: URBCS1 AUWI 0-2 /[HPF] (0-2); URINE BACTERIA AUWI NEG (NEGATIVE); URINE SQUAMOUS EPITHELIAL CELL OCC /[HPF]; UWBCS1 AUWI 0-2 (0-5)
[2016-09-26 08:36] LABS: CULTURE INDICATED? NO; U HYALINE CASTS AUWI 0-2 /[LPF]
[2016-09-26] MEDS ORDERED: FERROUS GLUCON324 M1 PO (08:41)
[2016-09-26] MEDS ORDERED: IMDUR PO (08:41)
[2016-09-26 08:47] LABS: INR 2.2; PARTIAL THROMBOPLASTIN TIME 28.5 SECONDS (23.5-31.3)
[2016-09-26 08:50] LABS: PROTHROMBIN TIME (PATIENT) 23.7 SECONDS (10.0-11.7)
[2016-09-26 09:33] LABS: POC - TROPONIN <0.05 ng/mL (<=0.05)
[2016-09-26 12:02] LABS: ARTERIAL BLOOD GAS CARBOXY HB 0.7 %sat (0.0-9.0); ARTERIAL BLOOD GAS HCO3 25.5 mmol/L; ARTERIAL BLOOD GAS MET HB 0.8 %sat (0.0-2.0); ARTERIAL BLOOD GAS PO2 91.9 mmHg (80.0-100); ARTERIAL BLOOD GAS pH 7.296 (7.350-7.450)
[2016-09-26 12:03] LABS: ARTERIAL BLOOD GAS ART SITE RIGHT BRACHIAL; ARTERIAL BLOOD GAS DELIVERY BIPAP; ARTERIAL BLOOD GAS PCO2 52.4 mmHg (35.0-45.0); ARTERIAL DRAW? YES
[2016-09-27 03:55] LABS: BASOPHIL% 0.2 % (0-2.5); DIFF IND NO; EOSINOPHIL% 0.2 % (0.0-7.0); HEMATOCRIT 31.4 % (35.0-45.0); HEMOGLOBIN 10.1 gm/dL (12.0-16.0); LYMPHOCYTE% 14.5 % (17.0-45.0); MEAN CELL VOLUME 97.8 FL (83-96); MEAN CORPUSCULAR HEMOGLOBIN 31.3 PG (28-34); MEAN PLATELET VOLUME 10.4 FL (6.5-11.5); MONOCYTE# 0.8 X10e3 (0-1.0); MONOCYTE% 11.8 % (3.0-12.0); NEUTROPHIL# 4.9 X10e3 (1.5-7.1); NEUTROPHIL% 73.3 % (40-75); PLATELET COUNT 142 X10e3 (140-420); RED BLOOD COUNT 3.21 X10e (3.90-5.30); RED CELL DISTRIBUTION WIDTH 15.6 % (11.0-15.5); WHITE BLOOD COUNT 6.7 X10e3 (4.0-10.5)
[2016-09-27 04:03] LABS: ARTERIAL BLD GAS O2 SATURATION 97.5 % (90.0-100.0); ARTERIAL BLOOD GAS CARBOXY HB 0.8 %sat (0.0-9.0); ARTERIAL BLOOD GAS HCO3 28.1 mmol/L; ARTERIAL BLOOD GAS MET HB 0.7 %sat (0.0-2.0); ARTERIAL BLOOD GAS pH 7.333 (7.350-7.450)
[2016-09-27 04:04] LABS: ARTERIAL BLOOD GAS ALLEN TEST NORMAL; ARTERIAL BLOOD GAS ART SITE LEFT RADIAL; ARTERIAL DRAW? YES
[2016-09-27 04:13] LABS: PARTIAL THROMBOPLASTIN TIME 27.9 SECONDS (23.5-31.3)
[2016-09-27 04:14] LABS: PROTHROMBIN TIME (PATIENT) 11.2 SECONDS (10.0-11.7)
[2016-09-27 04:28] LABS: BUN/CREATININE RATIO 16.4; CALCIUM SERUM 8.5 mg/dL (8.4-10.2); CREATININE SERUM 2.5 mg/dL (0.6-1.4); GLOM FILT RATE Estimated 17.1 mL/min (>60); POTASSIUM 5.1 mmol/L (3.5-5.1)
[2016-09-28 05:01] LABS: ARTERIAL BLOOD GAS CARBOXY HB 0.5 %sat (0.0-9.0); ARTERIAL BLOOD GAS HCO3 29.1 mmol/L; ARTERIAL BLOOD GAS MET HB 0.8 %sat (0.0-2.0)
[2016-09-28 05:04] LABS: ARTERIAL BLOOD GAS ALLEN TEST NORMAL; ARTERIAL BLOOD GAS ART SITE LEFT RADIAL; ARTERIAL BLOOD GAS DELIVERY BIPAP 14/6 R12; ARTERIAL BLOOD GAS PCO2 53.9 mmHg (35.0-45.0); ARTERIAL DRAW? YES
[2016-09-28 08:18] LABS: BUN/CREATININE RATIO 18.42; CALCIUM SERUM 8.6 mg/dL (8.4-10.2); CREATININE SERUM 1.9 mg/dL (0.6-1.4); GLOM FILT RATE Estimated 23.8 mL/min (>60); POTASSIUM 4.6 mmol/L (3.5-5.1)
[2016-09-29 07:28] LABS: BUN/CREATININE RATIO 17.5; CALCIUM SERUM 8.9 mg/dL (8.4-10.2); CREATININE SERUM 2.4 mg/dL (0.6-1.4); GLOM FILT RATE Estimated 17.9 mL/min (>60); POTASSIUM 4.9 mmol/L (3.5-5.1)
[2016-09-30 06:58] LABS: ARTERIAL BLD GAS O2 SATURATION 86.2 % (90.0-100.0); ARTERIAL BLOOD GAS CARBOXY HB 0.9 %sat (0.0-9.0); ARTERIAL BLOOD GAS HCO3 31.8 mmol/L; ARTERIAL BLOOD GAS MET HB 0.7 %sat (0.0-2.0); ARTERIAL BLOOD GAS pH 7.412 (7.350-7.450)
[2016-09-30 07:02] LABS: ARTERIAL BLOOD GAS ALLEN TEST NORMAL; ARTERIAL BLOOD GAS ART SITE RIGHT RADIAL; ARTERIAL BLOOD GAS PO2 51.7 mmHg (80.0-100); ARTERIAL DRAW? YES
[2016-09-30 09:12] LABS: BUN/CREATININE RATIO 24.73; CALCIUM SERUM 8.8 mg/dL (8.4-10.2); CREATININE SERUM 1.9 mg/dL (0.6-1.4); GLOM FILT RATE Estimated 23.8 mL/min (>60); POTASSIUM 4.4 mmol/L (3.5-5.1)
[2016-10-02 07:12] LABS: HEMATOCRIT 31.7 % (35.0-45.0); HEMOGLOBIN 10.3 gm/dL (12.0-16.0); MEAN CELL VOLUME 97.1 FL (83-96); MEAN CORPUSCULAR HEMOGLOBIN 31.4 PG (28-34); MEAN CORPUSCULAR HGB CONC 32.4 g/dL (30-36); MEAN PLATELET VOLUME 11.1 FL (6.5-11.5); RED BLOOD COUNT 3.27 X10e (3.90-5.30); RED CELL DISTRIBUTION WIDTH 15.2 % (11.0-15.5); WHITE BLOOD COUNT 7.5 X10e3 (4.0-10.5)
[2016-10-02 07:58] LABS: BUN/CREATININE RATIO 22.85; CALCIUM SERUM 9.4 mg/dL (8.4-10.2); CREATININE SERUM 2.1 mg/dL (0.6-1.4); GLOM FILT RATE Estimated 21.1 mL/min (>60); POTASSIUM 4.6 mmol/L (3.5-5.1)
== END 2016-10-02 14:22 | DRG 286 ==
LOC: CED 06:55 → CEDOF 09:43 → C5B 09:43 → CICCU3 09:43 → C5B 09-28 16:53
PROVIDERS: Emergency Medicine; Family Medicine; Internal Medicine; Internal Medicine Cardiovascular Disease; Internal Medicine Nephrology
PROC: 4A023N8 Measurement of Cardiac Sampling and Pressure, Bilateral, Percutaneous Approach (ICD-10-PCS; principal; 2016-09-27)
PROC: B213YZZ Fluoroscopy of Multiple Coronary Artery Bypass Grafts using Other Contrast (ICD-10-PCS; 2016-09-27)
PROC: B211YZZ Fluoroscopy of Multiple Coronary Arteries using Other Contrast (ICD-10-PCS; 2016-09-27)
DX: I13.0 Hypertensive heart and chronic kidney disease with heart failure and stage 1 through stage 4 chronic kidney disease, or unspecified chronic kidney disease (principal); I50.33 Acute on chronic diastolic (congestive) heart failure; J96.21 Acute and chronic respiratory failure with hypoxia; N18.4 Chronic kidney disease, stage 4 (severe); N17.9 Acute kidney failure, unspecified; I27.2 Other secondary pulmonary hypertension; T82.858A Stenosis of other vascular prosthetic devices, implants and grafts, initial encounter; F03.90 Unspecified dementia, unspecified severity, without behavioral disturbance, psychotic disturbance, mood disturbance, and anxiety; J96.22 Acute and chronic respiratory failure with hypercapnia; I25.10 Atherosclerotic heart disease of native coronary artery without angina pectoris; Z95.4 Presence of other heart-valve replacement; I25.5 Ischemic cardiomyopathy; Z79.82 Long term (current) use of aspirin; E03.9 Hypothyroidism, unspecified; F41.9 Anxiety disorder, unspecified; K21.9 Gastro-esophageal reflux disease without esophagitis; M19.90 Unspecified osteoarthritis, unspecified site; Z87.891 Personal history of nicotine dependence; Z88.2 Allergy status to sulfonamides; Z86.73 Personal history of transient ischemic attack (TIA), and cerebral infarction without residual deficits; D64.89 Other specified anemias; Y71.8 Miscellaneous cardiovascular devices associated with adverse incidents, not elsewhere classified
CPT/HCPCS: 36415; 36600; 51702; 71010; 71020; 80048; 80076; 81003; 82553; 82803; 82810; 83605; 83735; 83880; 84484; 85025; 85027; 85347; 85610; 85730; 87040; 93005; 94640; 94660; 94760; 94761; 96365; 96367; 96375; 99291; C1769; C1887; C9113; J1644; J1650; J1940; J2250; J2405; J2543; J2920; J3010; J3370